=== PATIENT | female | born 1995 | race Caucasian/White ===

== ENCOUNTER 2017-12-18 13:47 | Emergency (ER) | payer BC ==
[2017-12-18] MEDS ORDERED: KETOROLAC 30 MG/ML 1 ML VIAL IVP STA (14:30)
--- NOTE | 2017-12-18 14:57 | ED ---
Abdominal Pain HPI - General Chief Complaint: Abdominal Pain Stated Complaint: abdominal pain Time Seen by Provider: 12/18/17 14:10 Source: patient, RN notes reviewed Mode of arrival: ambulatory Limitations: no limitations - History of Present Illness Initial Comments: 22-year-old female presents emergency Department chief complaint of lower abdominal pain. Patient had increased pain over the last couple days was seen by PCP yesterday had lab work, urinalysis and told that she had blood in her urine was consistent with urinary tract infection. She did have an x-ray to rule out kidney stones which was negative. Patient denies any back pain, flank pain. She states the pain comes and goes but states it's very intense in nature. She states it is diffuse in her lower abdomen but does complain of mild increase in the right lower. Patient denies fever, chills, chest pain or shortness breath. She's had normal bowel movements. Patient denies any chance . - Related Data Home Medications Medication Instructions Recorded Confirmed Nitrofurantoin Macrocrystal 100 mg PO BID 12/18/17 12/18/17 [Macrodantin] Previous Rx's Medication Instructions Recorded Phenazopyridine [Pyridium] 200 mg PO TID #6 tablet 12/18/17 Allergies Allergy/AdvReac Type Severity Reaction Status Date / Time No Known Allergies Allergy Verified 12/18/17 14:47 Review of Systems ROS Statement: Those systems with pertinent positive or pertinent negative responses have been documented in the HPI. ROS Other: All systems not noted in ROS Statement are negative. Past Medical History Past Medical History: No Reported History History of Any Multi-Drug Resistant Organisms: None Reported Past Surgical History: Adenoidectomy, Tonsillectomy Past Psychological History: No Psychological Hx Reported Smoking Status: Never smoker Past Alcohol Use History: Occasional Past Drug Use History: None Reported General Exam Limitations: no limitations General appearance: alert, in no apparent distress Head exam: Present: atraumatic, normocephalic, normal inspection Eye exam: Present: normal appearance, PERRL, EOMI. Absent: scleral icterus, conjunctival injection, periorbital swelling Respiratory exam: Present: normal lung sounds bilaterally. Absent: respiratory distress, wheezes, rales, rhonchi, stridor Cardiovascular Exam: Present: regular rate, normal rhythm, normal heart sounds. Absent: systolic murmur, diastolic murmur, rubs, gallop, clicks GI/Abdominal exam: Present: soft, tenderness (Mild to moderate diffuse lower abdominal tenderness), normal bowel sounds. Absent: distended, guarding, rebound, rigid Back exam: Absent: CVA tenderness (R), CVA tenderness (L) Skin exam: Present: warm, dry, intact, normal color. Absent: rash Course Vital Signs 12/18/17 13:56 Temperature 98.9 F Pulse Rate 103 H Respiratory 20 Rate Blood Pressure 127/70 O2 Sat by Pulse 98 Oximetry Medical Decision Making - Medical Decision Making 22-year-old female presents emergency Department for lower abdominal pain. Patient had ultrasound shows no acute abnormality. Patient has a urinary tract infection will be given Rocephin. Patient will continue Macrobid at home as prescribed. Again culture is pending patient was started on Pyridium. - Lab Data Result diagrams: 12/18/17 14:54 12/18/17 14:54 Lab Results 12/18/17 12/18/17 12/18/17 Range/Units 13:56 13:56 14:54 WBC (4.0-11.0) k/uL RBC (3.80-5.40) m/uL Hgb (11.4-16.0) gm/dL Hct (34.0-46.0) % MCV (80.0-100.0) fL MCH (25.0-35.0) pg MCHC (31.0-37.0) g/dL RDW (11.5-15.5) % Plt Count (150-450) k/uL Neutrophils % % Lymphocytes % % Monocytes % % Eosinophils % % Basophils % % Neutrophils # (1.3-7.7) k/uL Lymphocytes # (1.0-4.8) k/uL Monocytes # (0-1.0) k/uL Eosinophils # (0-0.7) k/uL Basophils # (0-0.2) k/uL Sodium 139 (137-145) mmol/L Potassium 4.1 (3.5-5.1) mmol/L Chloride 105 (98-107) mmol/L Carbon Dioxide 24 (22-30) mmol/L Anion Gap 10 mmol/L BUN 10 (7-17) mg/dL Creatinine 0.65 (0.52-1.04) mg/dL Est GFR (CKD-EPI)AfAm >90 (>60 ml/min/1.73 sqM) Est GFR (CKD-EPI)NonAf >90 (>60 ml/min/1.73 sqM) Glucose 99 (74-99) mg/dL Calcium 10.0 (8.4-10.2) mg/dL Total Bilirubin 0.6 (0.2-1.3) mg/dL AST 21 (14-36) U/L ALT 24 (9-52) U/L Alkaline Phosphatase 73 (38-126) U/L Total Protein 7.8 (6.3-8.2) g/dL Albumin 4.9 (3.5-5.0) g/dL Amylase 55 (30-110) U/L Lipase 40 (23-300) U/L Urine Color Yellow Urine Appearance Cloudy H (Clear) Urine pH 6.5 (5.0-8.0) Ur Specific [place] 1.016 (1.001-1.035) Urine Protein Trace H (Negative) Urine Glucose (UA) Negative (Negative) Urine Ketones Negative (Negative) Urine Blood Trace H (Negative) Urine Nitrite Negative (Negative) Urine Bilirubin Negative (Negative) Urine Urobilinogen <2.0 (<2.0) mg/dL Ur Leukocyte Esterase Large H (Negative) Urine RBC 3 (0-5) /hpf Urine WBC 29 H (0-5) /hpf Ur Squamous Epith Cells 7 H (0-4) /hpf Urine Bacteria Few H (None) /hpf Urine Mucus Few H (None) /hpf Urine HCG, Qual Not Detected (Not Detectd) 12/18/17 Range/Units 14:54 WBC 9.7 (4.0-11.0) k/uL RBC 4.71 (3.80-5.40) m/uL Hgb 13.5 (11.4-16.0) gm/dL Hct 41.1 (34.0-46.0) % MCV 87.2 (80.0-100.0) fL MCH 28.6 (25.0-35.0) pg MCHC 32.8 (31.0-37.0) g/dL RDW 13.1 (11.5-15.5) % Plt Count 236 (150-450) k/uL Neutrophils % 79 % Lymphocytes % 17 % Monocytes % 3 % Eosinophils % 0 % Basophils % 0 % Neutrophils # 7.7 (1.3-7.7) k/uL Lymphocytes # 1.7 (1.0-4.8) k/uL Monocytes # 0.3 (0-1.0) k/uL Eosinophils # 0.0 (0-0.7) k/uL Basophils # 0.0 (0-0.2) k/uL Sodium (137-145) mmol/L Potassium (3.5-5.1) mmol/L Chloride (98-107) mmol/L Carbon Dioxide (22-30) mmol/L Anion Gap mmol/L BUN (7-17) mg/dL Creatinine (0.52-1.04) mg/dL Est GFR (CKD-EPI)AfAm (>60 ml/min/1.73 sqM) Est GFR (CKD-EPI)NonAf (>60 ml/min/1.73 sqM) Glucose (74-99) mg/dL Calcium (8.4-10.2) mg/dL Total Bilirubin (0.2-1.3) mg/dL AST (14-36) U/L ALT (9-52) U/L Alkaline Phosphatase (38-126) U/L Total Protein (6.3-8.2) g/dL Albumin (3.5-5.0) g/dL Amylase (30-110) U/L Lipase (23-300) U/L Urine Color Urine Appearance (Clear) Urine pH (5.0-8.0) Ur Specific [place] (1.001-1.035) Urine Protein (Negative) Urine Glucose (UA) (Negative) Urine Ketones (Negative) Urine Blood (Negative) Urine Nitrite (Negative) Urine Bilirubin (Negative) Urine Urobilinogen (<2.0) mg/dL Ur Leukocyte Esterase (Negative) Urine RBC (0-5) /hpf Urine WBC (0-5) /hpf Ur Squamous Epith Cells (0-4) /hpf Urine Bacteria (None) /hpf Urine Mucus (None) /hpf Urine HCG, Qual (Not Detectd) Disposition Clinical Impression: Urinary tract infection, Abdominal pain Disposition: HOME SELF-CARE Condition: Stable Instructions: Urinary Tract Infection in Women (ED) Additional Instructions: Please return to the Emergency Department if symptoms worsen or any other concerns. Prescriptions: Phenazopyridine [Pyridium] 200 mg PO TID #6 tablet Is patient prescribed a controlled substance at d/c from ED?: No Referrals: Dragan Domingo MD [Primary Care Provider] - 1-2 days Time of Disposition: 16:18
[2017-12-18 15:10] LABS: Basophils % (A) 0 %; Eosinophils % (A) 0 %; HCT 41.1 % (34.0-46.0); HGB 13.5 gm/dL (11.4-16.0); Lymphocytes # (A) 1.7 k/uL (1.0-4.8); Lymphocytes % (A) 17 %; MCH 28.6 pg (25.0-35.0); MCHC 32.8 g/dL (31.0-37.0); MCV 87.2 fL (80.0-100.0); Mean Platelet Volume 6.4; Monocytes # (A) 0.3 k/uL (0-1.0); Monocytes % (A) 3 %; Neutrophils # (A) 7.7 k/uL (1.3-7.7); Neutrophils % (A) 79 %; Platelet Count 236 k/uL (150-450); RBC 4.71 m/uL (3.80-5.40); RDW 13.1 % (11.5-15.5); WBC 9.7 k/uL (4.0-11.0)
[2017-12-18 15:28] LABS: Appearance,Urine Cloudy (Clear); Bacteria,Urine Few /hpf; Bilirubin,Urine Negative (Negative); Blood,Urine Trace (Negative); Color,Urine Yellow; Glucose,Urine (UA) Negative (Negative); Ketones,Urine Negative (Negative); Leukocyte Esterase,Urine Large (Negative); Mucus,Urine Few /hpf; Nitrite,Urine Negative (Negative); PH, Urine 6.5 (5.0-8.0); Protein,Urine Trace (Negative); RBC,Urine 3 /hpf (0-5); Specific Gravity,Urine 1.016 (1.001-1.035); Squamous Epithelial Cell,Urine 7 /hpf (0-4); Urobilinogen,Urine <2.0 mg/dL (<2.0); WBC,Urine 29 /hpf (0-5)
[2017-12-18 15:29] LABS: ALT 24 U/L (9-52); AST 21 U/L (14-36); Albumin 4.9 g/dL (3.5-5.0); Alkaline Phosphatase 73 U/L (38-126); Amylase 55 U/L (30-110); Anion Gap 10 mmol/L; Blood Urea Nitrogen 10 mg/dL (7-17); Carbon Dioxide 24 mmol/L (22-30); Chloride 105 mmol/L (98-107); Glucose 99 mg/dL (74-99); Lipase 40 U/L (23-300); Potassium 4.1 mmol/L (3.5-5.1); Sodium 139 mmol/L (137-145); Total Bilirubin 0.6 mg/dL (0.2-1.3); Total Protein 7.8 g/dL (6.3-8.2)
--- NOTE | 2017-12-18 15:33 | US ---
EXAMINATION TYPE: US transvaginal DATE OF EXAM: 12/18/2017 COMPARISON: US CLINICAL HISTORY: Pain. TECHNIQUE: Transvaginal (TV) and Transabdominal (TA) . Date of LMP: 12/09/17 EXAM MEASUREMENTS: Uterus: 7.6 x 3.3 x 4.6 cm Endometrial Stripe: 0.6 cm Right Ovary: 3.3 x 2.0 x 2.1cm Left Ovary: Obscured by overlying bowel gas 1. Uterus: Anteverted wnl 2. Endometrium: small amount of free fluid in endocervical canal 3. Right Ovary: wnl 4. Left Ovary: Obscured by overlying bowel gas Spectral, color and waveform doppler imaging shows good arterial and venous flow within the right o vary; there is no evidence for ovarian torsion on right. Left not visualized. 5. Bilateral Adnexa: wnl 6. Posterior cul-de-sac: wnl IMPRESSION: 1. Visualized pelvic ultrasound is unremarkable. 2. Note is made of a simple appearing right ovarian cyst. This could be followed at the next normal m enstrual period
[2017-12-18 16:35] VITALS: BP 111/56; PULSE 71; RESP 18; TEMP 98.6
== END 2017-12-18 17:11 | disposition home or self-care (01) ==
LOC: EC 13:47
DX: N39.0 Urinary tract infection, site not specified (principal); Z32.02 Encounter for pregnancy test, result negative
CPT/HCPCS: 36415; 80053; 82150; 83690; 85025; 81001; 81025; 87086; 93976; 76830; 99284; 96365; 96375; J0696; J1885

== ENCOUNTER → 2022-10-10 | Outpatient (CLI) | payer BC ==
--- NOTE | 2022-10-14 08:46 | CT ---
EXAMINATION TYPE: CT sinus wo con DATE OF EXAM: 10/10/2022 COMPARISON: None HISTORY: 26-year-old female J32.0 Chronic maxillary sinusitis x5yrs. CT DLP: 517 mGycm Automated exposure control for dose reduction was used. TECHNIQUE: Noncontrast axial views of the paranasal sinuses were obtained. Coronal and sagittal refor matted images were obtained. FINDINGS: PARANASAL SINUSES: There is scattered mild mucosal thickening throughout the maxillary sinuses and ethmoid air cells. Additional trace mucosal thickening right sphenoid sinus. The frontal sinuses are well pneumatized. There is no air-fluid level. Reactive fernando- osteogenesis is not seen. There is no destruction of the osseous boo of the paranasal sinuses. THE NASAL CAVITY: The osteomeatal complexes are patent. The nasal septum is not deviated. The imaged brain brain shows no gross abnormality. Punctate calcification at the bilateral optic disc s. Mastoid air cells and middle ear cavities are well pneumatized. Reformatted images confirm above findings. IMPRESSION: 1. Mild chronic ethmoid and maxillary sinus disease. 2. 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 Consider ophthalmology referral to [facility] if there is any clinical significance or follow-up needed.
== END | disposition home or self-care (01) ==
LOC: RADCTMAIN 15:36
PROVIDERS: ATTEND Otolaryngology
DX: J32.0 Chronic maxillary sinusitis (principal); J32.2 Chronic ethmoidal sinusitis
CPT/HCPCS: 70486